=== PATIENT | female | born 1995 | race Caucasian/White ===

== ENCOUNTER 2021-08-18 14:18 | Day surgery (SDC) | payer SELFPAY ==
[2021-08-18] MEDS ORDERED: hydrALAZINE 20 MG/ML VIAL SLOW IVP PRN (14:47)
[2021-08-18 15:04] VITALS: BMI 23.3
== END 2021-08-18 16:04 | disposition home or self-care (01) ==
LOC: CSHLD/OP 14:18
PROVIDERS: ATTEND Obstetrics & Gynecology
DX: O36.8330 Maternal care for abnormalities of the fetal heart rate or rhythm, third trimester, not applicable or unspecified (principal); Z3A.35 35 weeks gestation of pregnancy
CPT/HCPCS: 76819; 99281